=== PATIENT | female | born 1990 | race Caucasian/White ===

== ENCOUNTER 2024-06-01 11:19 | Emergency (ER) | payer SELFPAY ==
[~2024-06-01] VITALS: Ht 162.6 cm; Wt 91.0 kg
[2024-06-01 11:22] VITALS: O2SAT 100
[2024-06-01 12:38] LABS: CHLORIDE 105 mEq/L (98-107); POTASSIUM 3.7 mEq/L (3.5-5.1); SODIUM 136 mEq/L (136-145)
[2024-06-01 12:39] LABS: CALCIUM 8.9 mg/dL (8.7-10.4); CARBON DIOXIDE 21 mEq/L (21-32)
[2024-06-01] MEDS: METOCLOPRAMIDE HCL 10MG TABLET PO ONE (12:42)
[2024-06-01 12:44] LABS: CREATININE 0.5 mg/dL (0.6-1.0); GLUCOSE 83 mg/dL (70-105); UREA NITROGEN BLOOD 7 mg/dL (9-23)
[2024-06-01 12:46] LABS: ALANINE AMINOTRANSFERASE 16 IU/L (10-49); ALBUMIN 3.7 g/dL (3.2-4.8); ASPARTATE AMINOTRANSFERASE 22 IU/L (<34); BILIRUBIN TOTAL 0.3 mg/dL (0.1-1.0); PROTEIN TOTAL 7.5 g/dL (6.0-8.3)
[2024-06-01 13:02] LABS: INR 0.9; PROTHROMBIN TIME 9.5 sec (9.6-11.0)
[2024-06-01] MEDS ORDERED: NALO4SPR BOTHNSTRLS (13:06)
[2024-06-01 13:19] LABS: CLARITY URINE CLEAR (CLEAR); COLOR URINE YELLOW (YELLOW); GLUCOSE URINE NEGATIVE (NEGATIVE); KETONES URINE 1+ (NEGATIVE); LEUKOCYTE ESTERASE URINE TRACE (NEGATIVE); NITRITE URINE NEGATIVE (NEGATIVE); OCCULT BLOOD URINE NEGATIVE (NEGATIVE); PROTEIN URINE NEGATIVE (NEGATIVE)
[2024-06-01 13:24] LABS: BASOPHILS % 0.7 % (0.0-2.0); EOSINOPHILS % 0.7 % (0.0-5.0); HEMATOCRIT. 41.9 % (36.0-48.0); HEMOGLOBIN. 13.7 g/dL (12.0-16.0); LYMPHOCYTES % 15.6 % (20.0-50.0); MEAN CORPUSCULAR HEMOGLOBIN 29.9 pg (28.0-32.0); MEAN CORPUSCULAR HGB CONC 32.7 g/dL (31.0-37.0); MEAN CORPUSCULAR VOLUME 91.3 fL (81.0-99.0); MONOCYTES % 6.1 % (2.0-8.0); NEUTROPHILS % 76.9 % (40.0-76.0); RED BLOOD CELL COUNT 4.59 mill/uL (4.2-5.4); RED CELL DISTRIBUTION WIDTH 14.3 % (11.6-14.6); WHITE BLOOD COUNT 13.6 x1000/uL (4.5-11.0)
[2024-06-01 13:28] LABS: DIFFERENTIAL COMMENT 1
[2024-06-01 13:38] LABS: BILIRUBIN DIRECT < 0.1 mg/dL (<=3.0)
[2024-06-01] MEDS ORDERED: BUPR1TAB33 SL (13:40)
[2024-06-01 13:44] VITALS: BP 128/82; PULSE 72; RESP 18; TEMP 37.1; O2SAT 98
[2024-06-01 13:45] LABS: SQUAMOUS EPITHELIAL CELL URINE 3+ /lpf (RARE/1+)
[2024-06-01 13:49] LABS: PLATELET 195 x1000/uL (130-400)
[2024-06-01 13:50] LABS: MUCUS URINE TRACE /lpf (< = 2+)
[2024-06-01 13:51] LABS: BACTERIA URINE 2+
[2024-06-01 13:52] LABS: RBC URINE NONE SEEN /hpf (0-2); WBC URINE 0-2 /hpf (0-2)
== END 2024-06-01 13:49 | disposition home or self-care (01) ==
LOC: ER 11:19
DX: O99.322 Drug use complicating pregnancy, second trimester (principal); O99.342 Other mental disorders complicating pregnancy, second trimester; F11.23 Opioid dependence with withdrawal; F20.9 Schizophrenia, unspecified; Z3A.27 27 weeks gestation of pregnancy
CPT/HCPCS: 99284; 76805; 80076; 80048; 81003; 83690; 85025; 85610; 36415; J8597